=== PATIENT | female | born 2000 | race Two or more races ===

== ENCOUNTER 2022-06-01 14:20 | Outpatient (CLI) | payer OTHER | END 2022-06-01 16:05 | disposition home or self-care (01) | LOC: PRENATAL 14:20 | PROVIDERS: ATTEND Obstetrics & Gynecology Maternal & Fetal Medicine | DX: O35.9XX0 Maternal care for (suspected) fetal abnormality and damage, unspecified, not applicable or unspecified (principal); O35.3XX0 Maternal care for (suspected) damage to fetus from viral disease in mother, not applicable or unspecified; O99.210 Obesity complicating pregnancy, unspecified trimester; Z3A.25 25 weeks gestation of pregnancy ==

== ENCOUNTER 2022-07-20 13:09 | Outpatient (CLI) | payer OTHER | END 2022-07-20 14:25 | disposition home or self-care (01) | LOC: PRENATAL 13:09 | PROVIDERS: ATTEND Obstetrics & Gynecology Maternal & Fetal Medicine | DX: O26.849 Uterine size-date discrepancy, unspecified trimester (principal); O36.8199 Decreased fetal movements, unspecified trimester, other fetus; O99.210 Obesity complicating pregnancy, unspecified trimester; Z3A.32 32 weeks gestation of pregnancy ==

== ENCOUNTER 2022-08-17 20:44 | Inpatient (IN) | payer OTHER ==
[~2022-08-17] VITALS: Ht 160 cm; Wt 141.5 kg
[2022-08-17] MEDS ORDERED: PRENATAL TABLE1 EAC1 PO (21:30)
[2022-08-17] MEDS ORDERED: MAGNESIUM200 MG PO (21:30)
[2022-08-17] MEDS ORDERED: NIFEDIPINE20 MG PO (21:31)
== END 2022-08-21 18:15 | disposition home or self-care (01) | DRG 833 ==
LOC: LDR 20:44 → OB/GYN 08-21 12:22
PROVIDERS: ADMIT Obstetrics & Gynecology Obstetrics; ATTEND Obstetrics & Gynecology Obstetrics
PROC: 4A1HXCZ Monitoring of Products of Conception, Cardiac Rate, External Approach (ICD-10-PCS; principal; 2022-08-17)
DX: O13.3 Gestational [pregnancy-induced] hypertension without significant proteinuria, third trimester (principal); Z3A.36 36 weeks gestation of pregnancy; Z20.822 Contact with and (suspected) exposure to COVID-19

== ENCOUNTER 2022-08-31 23:11 | Inpatient (IN) | payer OTHER ==
[~2022-08-31] VITALS: Ht 162.6 cm; Wt 2.7 kg
[~2022-08-31 23:11] MED LIST: MAGNESIUM200 MG PO; NIFEDIPINE20 MG PO; PRENATAL TABLE1 EAC1 PO
== END 2022-09-04 14:32 | disposition home or self-care (01) | DRG 788 ==
LOC: LDR 23:11 → OB/GYN 23:11 → O/R 09-01 22:35 → OB/GYN 09-01 22:46
PROVIDERS: ADMIT Obstetrics & Gynecology Obstetrics; ATTEND Obstetrics & Gynecology Obstetrics
PROC: 4A1HXCZ Monitoring of Products of Conception, Cardiac Rate, External Approach (ICD-10-PCS; 2022-08-31)
PROC: 3E033VJ Introduction of Other Hormone into Peripheral Vein, Percutaneous Approach (ICD-10-PCS; 2022-09-01)
PROC: 3E0P7VZ Introduction of Hormone into Female Reproductive, Via Natural or Artificial Opening (ICD-10-PCS; 2022-09-01)
PROC: 10D00Z1 Extraction of Products of Conception, Low, Open Approach (ICD-10-PCS; principal; 2022-09-01 19:00)
DX: O14.04 Mild to moderate pre-eclampsia, complicating childbirth (principal); Z3A.38 38 weeks gestation of pregnancy; Z37.0 Single live birth; Z20.822 Contact with and (suspected) exposure to COVID-19